=== PATIENT | male | born 2000 | race Caucasian/White ===

== ENCOUNTER 2019-09-20 11:32 | Emergency (ER) | payer BC ==
[2019-09-20] MEDS ORDERED: KETAMINE HCL* 50 MG/ML 10 ML VIAL IV ONE (12:06)
[2019-09-20] MEDS ORDERED: Acetaminophen TAB* 325 MG PO ONE (12:15)
[2019-09-20] MEDS ORDERED: Ketorolac INJ* 30 MG/ML 1 ML VIAL IV PUSH ONE (12:21)
[2019-09-20] MEDS ORDERED: Midazolam* 1 MG/ML 2 ML VIAL (2 MG) IV SLOW PU ONE (12:21)
--- NOTE | 2019-09-20 12:23 | ED ---
Adult Trauma - HPI Summary HPI Summary: This patient is a 18 year old male presenting to [facility] with a chief complaint of right knee pain after a mechanical fall an hour ago. He states he fell while trying to put his pants on and injured his knee. 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 He rates his pain 8/10 in severity. Pt denies any fever, chills, erythema of eyes, sore throat, CP, SOB, cough, abdominal pain, N/V, dysuria, hematuria, myalgia, edema, rash, or dizziness. - History of Current Complaint Chief Complaint: EDExtremityLower Stated Complaint: DISLOCATED KNEE PER EMS Time Seen by Provider: 09/20/19 11:59 Hx Obtained From: Patient Mechanism of Injury: Fall Onset/Duration: Started Minutes Ago Pain Intensity: 8 Pain Scale Used: 0-10 Numeric - Allergy/Home Medications Allergies/Adverse Reactions: Allergies Allergy/AdvReac Type Severity Reaction Status Date / Time No Known Allergies Allergy Verified 09/20/19 11:39 Home Medications: Home Medications NK [No Home Medications Reported] 09/20/19 [History Confirmed 09/20/19] PMH/Surg Hx/FS Hx/Imm Hx Endocrine/Hematology History: Denies: Hx Diabetes Cardiovascular History: Denies: Hx Coronary Artery Disease Musculoskeletal History: Reports: Hx Orthopedic Injury Infectious Disease History: No Infectious Disease History: Denies: Traveled Outside the [place] in Last 30 Days - Family History Known Family History: Positive: Other - Joint disease in father - Social History Alcohol Use: None Substance Use Type: Reports: None Smoking Status (MU): Never Smoked Tobacco Review of Systems Negative: Fever, Chills Negative: Erythema Negative: Sore Throat Negative: Chest Pain Negative: Shortness Of Breath, Cough Negative: Abdominal Pain, Vomiting, Nausea Negative: dysuria, hematuria Positive: Other - Knee pain. Negative: Myalgia, Edema Negative: Rash Neurological: Other - Neg: Dizziness All Other Systems Reviewed And Are Negative: No Physical Exam - Summary Physical Exam Summary: Constitutional: Well-developed, Well-nourished, Alert, Cooperative Skin: Warm, Dry HENT: Normocephalic; No Racoons eyes; No blackburn's sign; No abrasion; No contusion; No hemotympanum; No maxilla facial tenderness or instability; Dentition are smooth; No dental trauma; No trismus Eyes: EOM normal, PERRL Neck: Trachea is midline. No stridor; No JVD; No step off; No posterior cervical spine tenderness Cardio: Rhythm regular, rate normal Heart sounds normal; Intact distal pulses; The pedal pulses are 2+ and symmetric. Radial pulses are 2+ and symmetric. Pulmonary/Chest wall: Effort normal; Breath sounds normal; Equal chest rise; No flail segment; No rib tenderness; No sternal tenderness Abd: Soft, Appearance normal. No distension; No tenderness; No palpable pulsatile mass; No Cullens sign; No Reid-Turners sign Musculoskeletal: Full ROM and no tenderness at hips, ankles, shoulders, elbows; No joint swelling; No vertebral body tenderness; No paraspinal tenderness; No step off or deformity of the spine; Pelvis is stable to lateral compression and rock. Right patella is laterally displaced. Neuro: Alert, Oriented x3, Strength 5/5 all extremities. : No blood at urethral meatus Psych: Mood and affect Normal Triage Information Reviewed: Yes Vital Signs On Initial Exam: Initial Vitals Temp Pulse Resp BP Pulse Ox 100 F 100 16 100/74 96 09/20/19 11:36 09/20/19 11:36 09/20/19 11:36 09/20/19 11:36 09/20/19 11:36 Vital Signs Reviewed: Yes Procedures - Sedation Patient Received Moderate/Deep Sedation with Procedure: Yes Are You The Provider Who Administered The Sedation: [place] of Provider Whom Sedated Patient: Jose R Garcia - Vital Signs Vital Signs Temp Pulse Resp BP Pulse Ox 09/20/19 11:36 100 F 100 16 100/74 96 - Laboratory Lab Statement: Any lab studies that have been ordered have been reviewed, and results considered in the medical decision making process. Re-Evaluation - Re-Evaluation First Eval Re-Evaluation Time: 13:38 Comment: Received procedural sedation from Dr. Garcia. Developed a rash on trunk and neck as a reaction to versed and ketamine. No angioedema. He should have a knee immobilizer and crutches and follow up with orthopedics. Second Eval Re-Evaluation Time: 13:41 Comment: Rash resolved after treatment with Benadryl. Lungs are clear no angioedema. Adult Trauma Course/Dx - Course Course Of Treatment: This patient is a 18 year old male presenting to [facility] with a chief complaint of right knee pain after a mechanical fall an hour ago. Dr. Garcia performed a joint reduction. Received procedural sedation from Dr. Garcia. Developed a rash on trunk and neck. No angioedema. Rash resolved after treatment with Benadryl. Lungs are clear no angioedema. He will have a knee immobilizer and crutches and follow up with orthopedics. He recovered from sedation. A plan for discharge was discussed with the patient and he was agreeable with this plan. - Diagnoses Provider Diagnoses: Closed dislocation of right patella Discharge ED - Sign-Out/Discharge Documenting (check all that apply): Patient Departure - Discharge - Discharge Plan Condition: Stable Disposition: HOME Patient Education Materials: Procedural Sedation (ED), Knee Dislocation (ED) Referrals: [facility] Orthopedic Services [Provider Group] - 3 Days Additional Instructions: Follow up with Orthopedics in 2-3 days. Return to ED with new or worsening symptoms. - Attestation Statements Document Initiated by Scribe: Yes Documenting Scribe: Augustine Coronado Provider For Whom Scribe is Documenting (Include Credential): Rosas Pérez MD Scribe Attestation: Augustine Colunga, scribed for Rosas Pérez MD on 09/20/19 at 1202. Status of Scribe Document: Ready
[2019-09-20] MEDS ORDERED: diPHENhydraMINE IV* 50 MG/ML 1 ml VIAL (BENADRYL) ONE (13:33)
[2019-09-20] MEDS ORDERED: Dexamethasone IV* 4 MG/ML 1 ML (4 MG) IV SLOW PU ONE (13:39)
--- NOTE | 2019-09-20 13:48 | ED ---
ED Sedation - Procedural Sedation/Analgesia Sedation Course: RT Present, Emergency Airway Equipment Available, Informed Consent Obtained, Time Out Completed, End-tidal Capnography Utilized Adverse Reactions Experienced by Patient: None Adverse Reaction Comment: Allergic reaction: localized hives Mallampati Classification: Class II ASA Classification: Class II: Mild Systemic Disease Diagnosis: Patellar dislocation Pre-Procedural Heart: S1 and S2 Pre-Procedural Lungs: Clear Auscultation Comment/Plan of Care: Patellar dislocation reduction Provider Procedure Attestation: With My Signature Below, I Attest to have Personally Reviewed and Agree with the Pre-Sedation History and Pre-Service Assessment Update Cleared for Moderate Sedation: Yes Pre-Procedural Diagnosis: Patellar dislocation Post-Procedural Diagnosis: Patellar dislocation Procedure: Patellar dislocation reduction Estimated Blood Loss: None Specimen(s): None Findings: None Implants/Tubes/Drains Placed: None
[2019-09-20] MEDS ORDERED: diPHENhydraMINE IV* 50 MG/ML 1 ml VIAL (BENADRYL) IV ONE (14:20)
--- NOTE | 2019-09-20 14:58 | ED ---
Progress - Progress Note Progress Note: Right knee patella reduction: Right leg extended without patella reduction. Patella was easily returned to midline with manually pushing medially. Neurovascularly intact pre and post reduction. Pt. tolerated well. Re-Evaluation - Re-Evaluation First Eval Re-Evaluation Time: 13:38 Comment: Received procedural sedation from Dr. Garcia. Developed a rash on trunk and neck as a reaction to versed and ketamine. No angioedema. He should have a knee immobilizer and crutches and follow up with orthopedics. Second Eval Re-Evaluation Time: 13:41 Comment: Rash resolved after treatment with Benadryl. Lungs are clear no angioedema. Course/Dx - Course Course Of Treatment: This patient is a 18 year old male presenting to [facility] with a chief complaint of right knee pain after a mechanical fall an hour ago. Dr. Garcia performed a joint reduction. Received procedural sedation from Dr. Garcia. Developed a rash on trunk and neck. No angioedema. Rash resolved after treatment with Benadryl. Lungs are clear no angioedema. He will have a knee immobilizer and crutches and follow up with orthopedics. He recovered from sedation. A plan for discharge was discussed with the patient and he was agreeable with this plan. - Diagnoses Provider Diagnoses: Closed dislocation of right patella Discharge ED - Sign-Out/Discharge Documenting (check all that apply): Patient Departure - Discharge Plan Condition: Stable Disposition: HOME Patient Education Materials: Knee Dislocation (ED), Procedural Sedation (ED) Referrals: [facility] Orthopedic Services [Provider Group] - 3 Days Additional Instructions: Follow up with Orthopedics in 2-3 days. Return to ED with new or worsening symptoms. - Billing Disposition and Condition Condition: STABLE Disposition: Home
[2019-09-20 15:21] VITALS: BP 103/49
== END 2019-09-20 15:27 | disposition home or self-care (01) ==
LOC: ED 11:32
DX: S83.004A Unspecified dislocation of right patella, initial encounter (principal); W19.XXXA Unspecified fall, initial encounter; Y92.9 Unspecified place or not applicable
CPT/HCPCS: 27560; 96374; 96375; 99285; J1100; J1200; J1885; J2250